=== PATIENT | female | born 1985 | race Caucasian/White ===

== ENCOUNTER 2023-05-06 09:09 | Emergency (ER) | payer MEDICAID ==
[~2023-05-06] VITALS: Ht 162.6 cm; Wt 70.6 kg
[2023-05-06] MEDS ORDERED: ketorolac trometh inj. 60 MG/2 ML VIAL IM ONE (10:40)
[2023-05-06] MEDS ORDERED: TETanus/Pertussis (Acell)/Diphther VAC/PF (Tdap-Adult) 0.5ml syringe IMVAC ONE (10:40)
[2023-05-06] MEDS ORDERED: NAPR-56 PO (11:06)
[2023-05-06] MEDS ORDERED: CEPH-585 PO (11:06)
[2023-05-06 11:25] VITALS: BP 105/74; PULSE 52; TEMP 98; O2SAT 100
[2023-05-06 11:27] VITALS: RESP 16
--- NOTE | 2023-05-06 11:52 | NUR ---
REVIEWED AND AGREE WITH LVNS ASSESSMENT.
== END 2023-05-06 11:27 | disposition home or self-care (01) ==
LOC: ER 09:10
DX: S91.332A Puncture wound without foreign body, left foot, initial encounter (principal); X58.XXXA Exposure to other specified factors, initial encounter; Y93.89 Activity, other specified; Y92.89 Other specified places as the place of occurrence of the external cause; Y99.8 Other external cause status
CPT/HCPCS: 90471; 90715; 96372; 99284; J1885